=== PATIENT | male | born 1975 | race Asian ===

== ENCOUNTER 2022-06-30 19:28 | Emergency (ER) | payer OTHER ==
[~2022-06-30] VITALS: Ht 162.6 cm; Wt 72.6 kg
[2022-06-30 19:50] VITALS: BP 139/77; TEMP 98.8
== END 2022-06-30 20:37 | disposition home or self-care (01) ==
LOC: EDBD 19:28 → ED 19:28
DX: L25.9 Unspecified contact dermatitis, unspecified cause (principal)
CPT/HCPCS: 96372; 99283; J1200

== ENCOUNTER 2022-09-09 12:04 | Emergency (ER) | payer OTHER ==
[~2022-09-09] VITALS: Ht 162.6 cm; Wt 57.8 kg
[2022-09-09 12:20] VITALS: TEMP 98.4
[2022-09-09 13:07] VITALS: BP 112/63
== END 2022-09-09 13:07 | disposition home or self-care (01) ==
LOC: ED 12:04
DX: L25.9 Unspecified contact dermatitis, unspecified cause (principal); B34.9 Viral infection, unspecified; R21 Rash and other nonspecific skin eruption
CPT/HCPCS: 96372; 99283; J1100